=== PATIENT | female | born 1955 | race Caucasian/White ===

== ENCOUNTER 2016-08-24 09:06 | Emergency (ER) | payer BC, OTHER ==
[2016-08-24 10:15] VITALS: BP 139/84
--- NOTE | 2016-08-24 10:33 | UC ---
Complaint Female HPI - HPI Summary HPI Summary: urinary tract infection symptoms for past 3 days. Has had numerous infections in past. No fever, no vomiting. Burning suprapubic pain - History Of Current Complaint Chief Complaint: UCGU Stated Complaint: URINARY Time Seen by Provider: 08/24/16 10:20 Hx Obtained From: Patient Onset/Duration: Gradual Onset, Lasting Days - 3 Timing: Constant Severity Initially: Mild Severity Currently: Moderate Character: Sharp, Dull Aggravating Factor(s): Urination Alleviating Factor(s): Nothing Associated Signs And Symptoms: Negative: Vaginal Bleeding/Discharge, Vaginal Discharge, Nausea, Vomiting(# Of Episodes =), Genital Swelling, Genital Blisters - Risk Factors Ectopic Risk Factor: Negative Ovarian Torsion Risk Factor: Negative - Allergies/Home Medications Allergies/Adverse Reactions: Allergies Allergy/AdvReac Type Severity Reaction Status Date / Time Penicillins Allergy Severe Swelling Verified 08/24/16 10:06 Home Medications: Home Medications Levothyroxine TAB* [Synthroid TAB*] 100 mcg PO DAILY 08/24/16 [History Confirmed 08/24/16] Lisinopril TAB* [Prinivil TAB*] 25 mg PO DAILY 08/24/16 [History Confirmed 08/24] Nicotine Polacrilex [Nicorette] 2 mg MT Q2H PRN 08/24/16 [History Confirmed ] buPROPion SR TAB* [Wellbutrin SR TAB*] 150 mg PO DAILY 08/24/16 [History Confirmed 08/24/16] diPHENhydraMINE PO* [Benadryl PO*] 25 mg PO BEDTIME PRN 08/24/16 [History Confirmed 08/24/16] PMH/Surg Hx/FS Hx/Imm Hx Endocrine History Of: Reports: Thyroid Disease Cardiovascular History Of: Reports: Hypertension - Surgical History Surgical History: Yes Surgery Procedure, Year, and Place: right ankle surgery 2016, open [place], tubal - Family History Known Family History: Negative: Respiratory Disease, Seizure Disorder - Social History Occupation: Employed Full-time Lives: With Family Alcohol Use: Daily Alcohol Amount: 1-2 glasses of wine a day Substance Use Type: None Smoking Status (MU): Light Every Day Tobacco Smoker Type: Cigarettes Amount Used/How Often: 8 cigarettes a day Length of Time of Smoking/Using Tobacco: 40 years Review of Systems Constitutional: Chills Skin: Negative Eyes: Negative ENT: Negative Respiratory: Negative Cardiovascular: Negative Gastrointestinal: Negative Genitourinary: Dysuria, Frequency, Urgency Motor: Negative Neurovascular: Negative Musculoskeletal: Negative Neurological: Negative Psychological: Negative All Other Systems Reviewed And Are Negative: Yes Physical Exam Triage Information Reviewed: Yes Appearance: Well-Appearing, No Pain Distress, Well-Nourished Vital Signs: Initial Vital Signs Temp 98.2 F 08/24/16 10:08 Pulse 95 08/24/16 10:08 Resp 16 08/24/16 10:08 BP 139/84 08/24/16 10:08 Pulse Ox 99 08/24/16 10:08 Vital Signs Reviewed: Yes Eye Exam: Normal Neck exam: Normal Neck: Positive: Supple Respiratory Exam: Normal Cardiovascular Exam: Normal Musculoskeletal Exam: Normal Neurological Exam: Normal Psychological Exam: Normal Skin Exam: Normal Diagnostics - Laboratory Diagnostic Studies Completed/Ordered: U/A dip: positive for infection Complaint Female Dx - Differential Dx/Diagnosis Differential Diagnosis/HQI/PQRI: Urinary Tract Infection Provider Diagnoses: UTI Discharge - Discharge Plan Condition: Stable Disposition: HOME Prescriptions: Cephalexin CAP* [Keflex CAP*] 500 mg PO TID #21 cap Fluconazole [Diflucan 150 MG (NF)] 150 mg PO ONCE PRN #1 tab PRN Reason: vaginal itching Phenazopyridine TAB* [Pyridium TAB*] 200 mdi PO TID #6 tab Patient Education Materials: Urinary Tract Infection in Women (ED) Referrals: Marina Wade [Primary Care Provider] -
== END 2016-08-24 10:45 | disposition home or self-care (01) ==
LOC: UCCORT 09:06
DX: N39.0 Urinary tract infection, site not specified (principal); E07.9 Disorder of thyroid, unspecified; I10 Essential (primary) hypertension; F17.210 Nicotine dependence, cigarettes, uncomplicated; Z88.0 Allergy status to penicillin; Z87.440 Personal history of urinary (tract) infections
CPT/HCPCS: 87077; 87086; 87186; 99212; G0463